=== PATIENT | female | born 2000 | race Caucasian/White ===

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

== ENCOUNTER → 2023-10-24 | Outpatient (CLI) | payer OTHER ==
[2023-10-24 11:07] VITALS: BP 133/90; PULSE 105; RESP 17; TEMP 97.8
--- NOTE | 2023-10-24 11:20 | P.HPOB ---
History of Present Illness H&P Date: 10/24/23 Chief Complaint: The patient is here for her routine gynecologic exam. This is a 23-year-old G0 with an LMP of 10/09/2023. The patient is here to establish with this office. She has never had a pelvic exam in the past she previously briefly used oral contraceptives which caused acne and this is why they were discontinued. She is currently not seeing anybody at this time. She has been sexually active and has used condoms in the past. Review of Systems The patient's weight has been stable over the last year. She denies respiratory, cardiac, or G.I. problems. Past Medical History Past Medical History: No Reported History, Pneumonia Additional Past Medical History / Comment(s): past pneumonia. 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 History of Any Multi-Drug Resistant Organisms: None Reported Past Surgical History: No Surgical Hx Reported Additional Past Surgical History / Comment(s): oral surgery, BROKEN NECK 2018 Past Anesthesia/Blood Transfusion Reactions: No Reported Reaction Past Psychological History: Anxiety, Depression Smoking Status: Never smoker, Vaper Past Alcohol Use History: Occasional (4-5 drinks per week.) Past Drug Use History: Marijuana (Occasional use, not every day.) Additional History: She is single and is currently not seeing anybody at this time. 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 She is currently living with her mother. - Past Family History Mother Family Medical History: No Reported History Additional Family Medical History / Comment(s): Mother treated for cervical dysplasia in the past. Father Family Medical History: No Reported History Medications and Allergies Home Medications Medication Instructions Recorded Confirmed Type Escitalopram [Lexapro] 20 mg PO DAILY 10/24/23 10/24/23 History Lisdexamfetamine Dimesylate 30 mg PO DAILY 10/24/23 10/24/23 History [Vyvanse] Allergies Allergy/AdvReac Type Severity Reaction Status Date / Time No Known Allergies Allergy Verified 10/24/23 10:40 Exam Vital Signs Temp Pulse Resp BP Pulse Ox 10/24/23 10:42 97.8 F 105 H 17 133/90 98 Intake and Output 10/23/23 10/24/23 10/24/23 22:59 06:59 14:59 Other: Weight 56.245 kg Height 5 feet 2 inches, weight 124 pounds, BMI 22.7. This is a well-developed well-nourished white female who is alert and oriented times 3 in no acute distress. HEENT: Within normal limits. NECK: Supple without mass or thyromegaly. CHEST AND LUNGS: Clear to auscultation. HEART: Regular rate and rhythm. BREASTS: Are without mass or discharge. AXILLARY EXAM: Negative for adenopathy. BACK: Negative for CVA tenderness. ABDOMEN: Soft, nontender, without palpable masses. PELVIC EXAM: Normal external genitalia. Cervix and vagina appear normal. There is no unusual discharge. There is no evidence of prolapse. The uterus is retroverted, nongravid size and nontender. There are no palpable adnexal masses or tenderness. RECTAL EXAM: Deferred. EXTREMITIES: Nontender. IMPRESSION: 1. 23-year-old female with normal gynecologic exam. 2. Mild menstrual irregularity with menstrual periods being about every 1-2 months. 3. Currently not in need for control. PLAN: 1. Pap smear was performed. 2. Self breast awareness was discussed with the patient. We have also discussed symptoms associated with inflammatory breast cancer. 3. GC and chlamydia testing were obtained from the cervix. 4. The patient will keep a menstrual calendar and call if she is having menstrual problems. 5. I have asked her to check her own blood pressure at home or at a local store or pharmacy. She will follow-up with Dr. Robles if she is having blood pressure elevations. 6. STD prevention was discussed with the patient. I have recommended that she limit sexual partners and use condoms if she is sexually active. 7. Since she had some worsening acne with control pills we have chosen not to restart the control pills at this time. She will call if she is having menstrual problems or if she isn't in need of control 8. She was advised to return in one year for her annual well woman exam and as needed.
== END ==
LOC: WWCWWP 10:05
PROVIDERS: ATTEND Obstetrics & Gynecology
DX: N92.6 Irregular menstruation, unspecified (principal); F41.9 Anxiety disorder, unspecified; F32.A Depression, unspecified; F17.290 Nicotine dependence, other tobacco product, uncomplicated; L70.9 Acne, unspecified; F12.90 Cannabis use, unspecified, uncomplicated; Z87.01 Personal history of pneumonia (recurrent)